=== PATIENT | male | born 1990 | race Caucasian/White ===

== ENCOUNTER 2016-07-22 18:05 | Emergency (ER) | payer MEDICAID | END 2016-07-22 20:51 | disposition home or self-care (01) | LOC: D.ER 18:05 | DX: S63.502A Unspecified sprain of left wrist, initial encounter (principal); W19.XXXA Unspecified fall, initial encounter; Y93.89 Activity, other specified; Y92.019 Unspecified place in single-family (private) house as the place of occurrence of the external cause ==

== ENCOUNTER 2016-08-01 14:20 | Emergency (ER) | payer MEDICAID | END 2016-08-01 15:30 | disposition home or self-care (01) | LOC: D.ER 14:20 | DX: G89.18 Other acute postprocedural pain (principal); Z98.890 Other specified postprocedural states ==

== ENCOUNTER 2016-08-24 12:10 | Emergency (ER) | payer MEDICAID | END 2016-08-24 13:59 | disposition home or self-care (01) | LOC: D.ER 12:10 | DX: M75.92 Shoulder lesion, unspecified, left shoulder (principal); M62.838 Other muscle spasm; S46.912A Strain of unspecified muscle, fascia and tendon at shoulder and upper arm level, left arm, initial encounter; X58.XXXA Exposure to other specified factors, initial encounter; Y93.89 Activity, other specified; Y92.89 Other specified places as the place of occurrence of the external cause ==

== ENCOUNTER 2017-01-14 15:19 | Emergency (ER) | payer MEDICAID | END 2017-01-14 18:57 | disposition home or self-care (01) | LOC: D.ER 15:19 | DX: M54.5 Low back pain (principal); M62.830 Muscle spasm of back ==

== ENCOUNTER 2018-03-17 09:15 | Emergency (ER) | payer MEDICAID ==
[~2018-03-17] VITALS: Ht 167.6 cm; Wt 63.6 kg
[2018-03-17 09:17] VITALS: Ht 167.6 cm; Wt 63.6 kg
[2018-03-17] MEDS ORDERED: CYCLOBENZAPRINE10 MG PO (10:54)
[2018-03-17] MEDS ORDERED: HYDROCODON-ACE1 EAC7 PO (10:54)
[2018-03-17 11:05] VITALS: BP 142/73
== END 2018-03-17 11:07 | disposition home or self-care (01) ==
LOC: D.ER 09:15
DX: S16.1XXA Strain of muscle, fascia and tendon at neck level, initial encounter (principal); V43.52XA Car driver injured in collision with other type car in traffic accident, initial encounter; Y93.89 Activity, other specified; Y92.410 Unspecified street and highway as the place of occurrence of the external cause